=== PATIENT | female | born 1980 | race Caucasian/White ===

== ENCOUNTER 2017-10-13 18:01 | Emergency (ER) | payer SELFPAY ==
[~2017-10-13] VITALS: Ht 160 cm; Wt 104.0 kg
[2017-10-14] MEDS ORDERED: FAMOTIDINE 20MG/2ML VIAL IV STA (01:39)
[2017-10-14] MEDS ORDERED: SODIUM CHLORIDE 0.9% 1,000 ML IV ONE (01:39)
[2017-10-14] MEDS ORDERED: ONDANSETRON 4MG ODT PO ONE (01:45)
[2017-10-14 02:27] LABS: BASOPHILS % 0.3 % (0.0-2.0); EOSINOPHILS % 0.5 % (0.0-5.0); HEMATOCRIT. 34.5 % (36.0-48.0); HEMOGLOBIN. 11.7 g/dL (12.0-16.0); LYMPHOCYTES % 24.3 % (20.0-50.0); MEAN CORPUSCULAR VOLUME 85.5 fL (81.0-99.0); MEAN PLATELET VOLUME 7.2 fl (7.4-10.4); MONOCYTES % 5.8 % (2.0-8.0); NEUTROPHILS % 69.1 % (40.0-76.0); PLATELET 329 x1000/uL (130-400); RED BLOOD CELL COUNT 4.04 mill/uL (4.2-5.4); RED CELL DISTRIBUTION WIDTH 13.6 % (11.6-14.6)
[2017-10-14 02:28] LABS: CHLORIDE 110 mEq/L (98-107)
[2017-10-14 02:30] LABS: PARTIAL THROMBOPLASTIN TIME 25.9 sec (23.4-31.0); PROTHROMBIN TIME 10.1 sec (9.4-11.6)
[2017-10-14 02:39] LABS: HCG SCREEN NEGATIVE
[2017-10-14] MEDS ORDERED: KETOROLAC 30MG/ML VIAL IV ONE (02:45)
[2017-10-14 03:10] LABS: CLARITY URINE CLEAR (CLEAR); COLOR URINE YELLOW (YELLOW); KETONES URINE NEGATIVE (NEGATIVE); LEUKOCYTE ESTERASE URINE NEGATIVE (NEGATIVE); NITRITE URINE NEGATIVE (NEGATIVE); OCCULT BLOOD URINE 1+ (NEGATIVE); PH URINE 6.5 (4.5-8.0); PROTEIN URINE 1+ (NEGATIVE); SPECIFIC GRAVITY URINE 1.006 (1.005-1.030); UROBILINOGEN URINE 0.2 E.U./dL (0.2-1.0)
[2017-10-14 06:00] VITALS: BP 121/70
== END 2017-10-14 06:01 | disposition home or self-care (01) ==
LOC: ER 21:04
DX: K76.0 Fatty (change of) liver, not elsewhere classified (principal); R10.11 Right upper quadrant pain
CPT/HCPCS: 36415; 76705; 80053; 81003; 83690; 84703; 85025; 85610; 85730; 96374; 96375; 99285; J1885; J3490; J7030; Q0162; Z7610; 96361